=== PATIENT | male | born 1960 | race Caucasian/White ===

== ENCOUNTER 2021-05-22 15:35 | Emergency (ER) | payer MEDICARE ==
[2021-05-22] MEDS ORDERED: Ibuprofen 200 MG TAB ONE (15:53)
[2021-05-23 17:12] LABS: SARS-CoV-2 PCR by NAA DETECTED (NotDetected)
== END 2021-05-22 16:08 | disposition home or self-care (01) ==
LOC: NAV ERS 15:35
DX: U07.1 COVID-19 (principal)
CPT/HCPCS: 87804; 99284; U0003; U0005

== ENCOUNTER 2022-09-28 16:29 | Outpatient (CLI) | payer MEDICARE, BC | END 2022-09-28 16:30 | disposition home or self-care (01) | LOC: NAV RAD 16:29 | PROVIDERS: ATTEND Family Medicine | DX: M10.9 Gout, unspecified (principal); M85.862 Other specified disorders of bone density and structure, left lower leg ==

== ENCOUNTER 2022-11-14 02:19 | Emergency (ER) | payer BC ==
[2022-11-14] MEDS ORDERED: FOMEPIZOLE ONE (02:42)
[2022-11-14] MEDS ORDERED: AMOXicillin 250 MG CAP ONE (02:42)
== END 2022-11-14 02:47 | disposition home or self-care (01) ==
LOC: NAV ERS 02:19
DX: K04.7 Periapical abscess without sinus (principal); I10 Essential (primary) hypertension
CPT/HCPCS: 99282; J1451